=== PATIENT | female | born 1995 | race Caucasian/White ===

== ENCOUNTER 2017-07-19 17:46 | Emergency (ER) | payer OTHER ==
[2017-07-19 18:09] VITALS: BMI 20.9
[2017-07-19 18:18] LABS: BILIRUBIN,URINE NEGATIVE (NEGATIVE); BLOOD/HEMOGLOBIN,URINE NEGATIVE (NEGATIVE); GLUCOSE, URINE NEGATIVE (NEGATIVE); KETONES,URINE NEGATIVE (NEGATIVE); LEUKOCYTE ESTERASE ,URINE NEGATIVE (NEGATIVE); NITRITES,URINE NEGATIVE (NEGATIVE); PROTEIN,URINE NEGATIVE (NEGATIVE); UROBILINOGEN,URINE NORMAL (NORMAL)
[2017-07-19 18:19] LABS: BASOPHILS # (AUTO) 0.1 X10^3/uL (0.0-0.1); BASOPHILS % (AUTO) 0.8 % (0.2-1.0); EOSINOPHILS # (AUTO) 0.1 x10^3/uL (0.0-0.2); EOSINOPHILS % (AUTO) 1.1 % (0.9-2.9); HEMATOCRIT 39.7 % (36.0-47.0); HEMOGLOBIN 13.6 g/dL (12.0-16.0); LYMPHOCYTES # (AUTO) 3.9 X10^3/uL (1.3-2.9); LYMPHOCYTES % (AUTO) 45.8 % (21.0-51.0); MEAN CORPUSCULAR HGB CONC 34.3 g/dL (33.0-35.0); MEAN CORPUSCULAR VOLUME 81.6 fL (80.0-100.0); MEAN PLATELET VOLUME 8.7 fL (7.4-11.0); MONOCYTES # (AUTO) 0.4 x10^3/uL (0.3-0.8); MONOCYTES % (AUTO) 4.2 % (0.0-13.0); NEUTROPHILS # (AUTO) 4.1 x10^3/uL (2.2-4.8); NEUTROPHILS % (AUTO) 48.1 % (42.0-75.0); PLATELET COUNT 291 X10^3/uL (150.0-450.0); RED BLOOD COUNT 4.86 X10^6/uL (3.5-5.4); RED CELL DISTRIBUTION WIDTH 13.8 % (11.6-16.5); WHITE BLOOD COUNT 8.5 X10^3/uL (3.6-10.0)
[2017-07-19 18:26] LABS: COLOR,URINE YELLOW (YELLOW)
[2017-07-19 18:27] LABS: APPEARANCE,URINE CLEAR (CLEAR); BACTERIA,URINE NEGATIVE /HPF (NEGATIVE); RBC,URINE 0 /HPF (NEGATIVE); SQUAMOUS EPITHELIAL CELL,UR NEGATIVE /HPF (NEGATIVE)
[2017-07-19 18:37] LABS: SALICYLATE < 2.8 mg/dL (2.8-20)
[2017-07-19 18:38] LABS: BLOOD UREA NITROGEN 9 mg/dL (7-18); CALCIUM 8.6 mg/dL (8.5-10.1); CARBON DIOXIDE 25.5 mmol/L (21-32); CHLORIDE 103 mmol/L (98-107); SODIUM 143 mmol/L (136-145); eGFR BLACK RACES > 60 (>60); eGFR NON BLACK RACES > 60 (>60)
[2017-07-19 18:41] LABS: ALANINE AMINOTRANSFERASE 15 Units/L (12-78); ALBUMIN 3.3 g/dL (3.4-5.0); ALKALINE PHOSPHATASE 126 Units/L (46-116); ASPARTATE AMINO TRANSFERASE 12 Units/L (15-37); BLOOD ALCOHOL 20 mg/dL (0-19.9); COR CA(FOR HYPOALB) 9.2 mg/dL (8.5-10.1); TOTAL PROTEIN 7.3 g/dL (6.4-8.2)
[2017-07-19] MEDS ORDERED: NS 1000 ML 1,000 ML IV ONE ×2 (20:03→23:52)
[2017-07-19] MEDS ORDERED: NS 1000 ML 1,000 ML ONE (20:04)
--- NOTE | 2017-07-19 20:27 | DR.AMS ---
HPI - Time Seen Time seen: 17:55 - PCP Primary Care Physician: FER - HPI Comment HPI Comment: 2 WEEKS POST . TOOK 20 TO 30 1MG ATIVAN AT 16:45PM TODAY. MOTHER BROUGHT HER TO ED. PATIENT SLEEPY BUT IS TRYING TO ANSWER QUESTIONS. THIS WAS A SUICIDAL GESTURE. - Complaint Cheif Complaint Doctors Comments: DRUG OVERDOSE. Chief Complaint:: MOTHER BRINGS PT. IN POV WITH C/O ATTEMPTED SUICIDE WITH OVERDOSE. PT. 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 PT. VERY DROWSY UPON ARRIVAL TO ER BUT RESPONDS APPROPIATELY TO COMMANDS. PT. IS 2 WEEKS POST-. MOTHER OF PT. STATES PT'S BOYFRIEND JUST OVERDOSED AND 2 WEEKS AGO. MOTHER STATES "SHE NEEDS SOME IN- PATIENT TREATMENT. I CAN'T WATCH HER, TAKE CARE OF HER KIDS, AND TRY TO WORK. SHE IS POST AND DEPRESSED. SHE HAS A HISTORY OF BIPOLAR." PT. HAS HAD IN- PATIENT TREATMENT BEFORE AT [facility]. - Reviewed Nurses Notes Reviewed: Yes - Source History Provided: Patient, Parent - Mode of Arrival Mode of Arrival: Wheelchair - Timing Onset of Chief Complaint: 07/19/17 Came On: Suddenly Symptoms: Worsening - Duration Duration: Constant Duration: Hours - Quality Quality: Decreased Alertness - Severity Severity: Moderate - Context Recent: None (HAVE EMOTIONAL TRAUMA. HER DAUGHTERS DAD TRAGICALL THE DAY HER CHILD WAS BORN.) History Of: None - Associated Signs and Symptoms Associated Signs and Symptoms: None PMH - PMH Past Medical History: Yes Past Medical History: Anxiety, Depression, Renal Disease, Seizures Past Medical History Comment: BIPOLAR Past Surgical History: Yes Surgical History: , Tonsillectomy - Family History History of Family Medical Conditions: Yes Family Medical History: Diabetes Mellitus, Hypertension - Social History Does patient currently use any type of tobacco product: Yes Have you used tobacco products in the last 12 months: Yes Type of Tobacco Use: Cigarettes Does any household member use tobacco: No Alcohol Use: Occasionally Do you use any recreational Drugs:: No Lives With: Mom Lives Where: Home - infectious screening In the last 2 months have you had wt loss of >10#?: NO Have you had fever, night sweats or hemotysis?: No Have you traveled outside the country in the last 6 months?: No Isolation: Standard ROS - Review of Systems Constitutional: Weakness, Fatigue. negative: Chills, Fever Eyes: negative: Eye Pain, Discharge ENTM: negative: Ear Pain, Nose Discharge, Nose Congestion, Throat Pain Respiratoy: negative: Productive Cough, Non-Productive Cough, Short of Breath, Wheezing, Hemoptysis Cardiovascular: negative: Chest Pain Gastrointestinal/Abdominal: negative: Abdominal Pain, Diarrhea, Nausea, Vomiting Genitourinary: negative: Dysuria, Frequency, Hematuria Neurological: Weakness. negative: Headache, Dizziness Musculoskeletal: No Symptoms Reported Integumentary: No Symptoms Reported Hematologic/Lymphatic: No Symptoms Reported Endocrine: No Symptoms Reported All Other Systems: Reviewed and Negative PE - Vitals Vital Signs: Temp Pulse Pulse Resp BP BP Pulse Ox 07/20/17 09:58 69 20 140/87 100 07/20/17 06:30 60 18 115/77 100 07/20/17 06:15 62 19 118/71 100 07/20/17 05:30 59 L 18 119/76 99 07/20/17 05:00 60 14 113/71 98 07/20/17 04:30 61 19 104/65 98 07/20/17 04:00 66 20 105/64 99 07/20/17 03:15 68 20 108/65 96 07/20/17 02:30 64 20 120/86 97 07/20/17 02:15 65 17 122/86 100 07/20/17 02:00 70 20 106/69 99 07/20/17 01:45 69 20 111/72 100 07/20/17 01:30 66 14 128/91 100 07/20/17 01:15 72 20 121/87 100 07/20/17 01:00 72 14 118/84 100 07/20/17 00:45 74 13 107/78 99 07/20/17 00:30 65 18 107/69 100 07/20/17 00:15 66 19 115/71 100 07/20/17 00:00 66 21 111/66 98 07/19/17 23:45 71 14 111/66 100 07/19/17 23:30 61 18 103/63 99 07/19/17 23:15 63 17 104/58 100 07/19/17 23:00 69 19 100/66 98 07/19/17 22:45 67 18 107/68 99 07/19/17 22:30 68 18 103/60 100 07/19/17 22:15 69 20 103/62 100 07/19/17 22:00 72 21 100/59 99 07/19/17 21:45 72 19 103/60 100 07/19/17 21:30 73 21 96/56 99 07/19/17 21:15 71 20 98/59 100 07/19/17 21:00 63 19 107/75 100 07/19/17 20:45 68 18 103/68 100 07/19/17 20:30 69 19 117/80 100 07/19/17 20:15 75 14 123/86 100 07/19/17 20:00 81 13 123/82 100 07/19/17 19:45 84 20 110/73 93 L 07/19/17 19:30 89 21 109/72 92 L 07/19/17 19:15 90 21 104/68 93 L 07/19/17 19:00 95 H 22 100/65 94 L 07/19/17 18:45 105 H 14 113/70 100 07/19/17 18:30 107 H 19 118/74 99 07/19/17 18:15 93 H 20 117/77 99 07/19/17 18:00 107 H 23 119/78 97 07/19/17 17:46 97.6 F 127 H 16 120/77 97 02/20/16 22:45 118/67 118/67 - General Limitations: Altered Mental Status (SLEEPY BUT AROUSABLE.) - Head Head Exam: Normal Inspection Head Exam Physical: Other (NONE.) - Eyes Eye exam: Normal Appearance, PERRL, EOMI. negative: Scleral Icterus, Conjunctival Injection Pupils: Regular, Round: Bilateral, Reactive: Bilateral - ENT ENT Exam: Normal External Ear Exam External Ear Exam: Normal External Inspection TM/Canal Exam: Bilateral Normal Nose Exam: Normal Nose Exam Mouth Exam: Normal Inspection Throat Exam: Normal Inspection - Neck Neck Exam: Normal Inspection - Chest Chest Inspection: Symmetric Chest Wall Rise - Respiratory Respiratory Exam: Normal Lung Sounds Bilat Respiratory Exam: Bilateral Clear to Auscultation - Cardiovascular Cardiovascular Exam: Regular Rate, Normal Rhythm, Normal Heart Sounds - Abdominal Exam Abdominal Exam: Normal Bowel Sounds, Soft. negative: Tenderness - Extremities Extremities Exam: Normal Inspection - Back Back Exam: Normal Inspection - Neurological Neurological Exam: Alert, Other (SLEEPY BUT AROUSABLE.) Speech: Other (SLOW SPEECH.) Cranial Nerve Exam: EOM Function (II, III, IV, ): Normal, Facial Sensation (V) : Normal, Facial Palsy (VII): Normal, Gag reflex (XI): Normal, Spinal Accessory Function (XI): Normal, Tongue Deviation: Normal Motor Strength - LUE: 5/5 Motor Strength - RUE: 5/5 Motor Strength - LLE: 5/5 Motor Strength - RLE: 5/5 Upper Motor Neuron Exam: Babinski Sign: Normal - Psychological Psychiatric Exam: Depressed, Flat Affect - Skin Skin Exam: Normal Color MDM - Additional Information Obtained Additional Information Obtained From: Family - Differential Diagnosis Metabolic: Dehydration, Hypernatremia, Hypoglycemia, Hyponatremia Toxicologic: Drug Overdose, ETOH Intoxification, Medication Toxicity Infectious: UTI Course - Treatment Treatment: SEE ORDERS. - Consultation Consultation Comments: [facility] CALLED AND DISCUSS PATIENT WITH THEM. [facility] RECOMMENDATIONS NOTED AND APPLIED. - Education/Counseling Education/Counseling: Patient, Family, Education Educated On: Treatment, Diagnosis ROR - Labs Reviewed Laboratory Results Reviewed?: Yes Result Diagrams: 07/19/17 18:03 07/20/17 00:30 Laboratory: WBC 8.5 X10^3/uL (3.6-10.0) 07/19/17 18:03 RBC 4.86 X10^6/uL (3.5-5.4) 07/19/17 18:03 Hgb 13.6 g/dL (12.0-16.0) 07/19/17 18:03 Hct 39.7 % (36.0-47.0) 07/19/17 18:03 MCV 81.6 fL (80.0-100.0) 07/19/17 18:03 MCH 28.0 pg (27.0-34.0) 07/19/17 18:03 MCHC 34.3 g/dL (33.0-35.0) 07/19/17 18:03 RDW 13.8 % (11.6-16.5) 07/19/17 18:03 Plt Count 291 X10^3/uL (150.0-450.0) 07/19/17 18:03 MPV 8.7 fL (7.4-11.0) 07/19/17 18:03 Neut % 48.1 % (42.0-75.0) 07/19/17 18:03 Lymph % 45.8 % (21.0-51.0) 07/19/17 18:03 [place] % 4.2 % (0.0-13.0) 07/19/17 18:03 Eos % 1.1 % (0.9-2.9) 07/19/17 18:03 Baso % 0.8 % (0.2-1.0) 07/19/17 18:03 Neut # 4.1 x10^3/uL (2.2-4.8) 07/19/17 18:03 Lymph # 3.9 X10^3/uL (1.3-2.9) H 07/19/17 18:03 [place] # 0.4 x10^3/uL (0.3-0.8) 07/19/17 18:03 Eos # 0.1 x10^3/uL (0.0-0.2) 07/19/17 18:03 Baso # 0.1 X10^3/uL (0.0-0.1) 07/19/17 18:03 Absolute Nucleated RBC 0.0 /100WBC 07/19/17 18:03 Sodium 143 mmol/L (136-145) 07/19/17 18:03 Corrected Sodium TNP 07/19/17 18:03 Potassium 4.1 mmol/L (3.5-5.1) 07/20/17 00:30 Chloride 103 mmol/L (98-107) 07/19/17 18:03 Carbon Dioxide 25.5 mmol/L (21-32) 07/19/17 18:03 BUN 9 mg/dL (7-18) 07/19/17 18:03 Creatinine 0.80 mg/dL (0.55-1.02) 07/19/17 18:03 Est GFR (MDRD) Af Amer > 60 (>60) 07/19/17 18:03 Est GFR (MDRD) Non-Af > 60 (>60) 07/19/17 18:03 Glucose 69 mg/dL (65-99) 07/19/17 18:03 Calcium 8.6 mg/dL (8.5-10.1) 07/19/17 18:03 Corrected Calcium 9.2 mg/dL (8.5-10.1) 07/19/17 18:03 Total Bilirubin 0.10 mg/dL (0.2-1.0) L 07/19/17 18:03 AST 12 Units/L (15-37) L 07/19/17 18:03 ALT 15 Units/L (12-78) 07/19/17 18:03 Alkaline Phosphatase 126 Units/L (46-116) H 07/19/17 18:03 Total Protein 7.3 g/dL (6.4-8.2) 07/19/17 18:03 Albumin 3.3 g/dL (3.4-5.0) L 07/19/17 18:03 Globulin 4.0 g/dL (2.5-4.5) 07/19/17 18:03 Albumin/Globulin Ratio 0.8 Ratio (1.1-2.1) L 07/19/17 18:03 Specimen Type Catherized urine 07/19/17 18:05 Urine Color Yellow (YELLOW) 07/19/17 18:05 Urine Appearance Clear (CLEAR) 07/19/17 18:05 Urine pH 6.0 (5.0 - 8.0) 07/19/17 18:05 Ur Specific [place] 1.005 (1.000-1.030) 07/19/17 18:05 Urine Protein Negative (NEGATIVE) 07/19/17 18:05 Urine Glucose (UA) Negative (NEGATIVE) 07/19/17 18:05 Urine Ketones Negative (NEGATIVE) 07/19/17 18:05 Urine Occult Blood Negative (NEGATIVE) 07/19/17 18:05 Urine Nitrite Negative (NEGATIVE) 07/19/17 18:05 Urine Bilirubin Negative (NEGATIVE) 07/19/17 18:05 Urine Urobilinogen Normal (NORMAL) 07/19/17 18:05 Ur Leukocyte Esterase Negative (NEGATIVE) 07/19/17 18:05 Urine RBC 0 /HPF (NEGATIVE) 07/19/17 18:05 Urine WBC 0 /HPF (NEGATIVE) 07/19/17 18:05 Ur Squamous Epith Cells Negative /HPF (NEGATIVE) 07/19/17 18:05 Urine Bacteria Negative /HPF (NEGATIVE) 07/19/17 18:05 Ur Culture Indicated? No/not indicated 07/19/17 18:05 Salicylates < 2.8 mg/dL (2.8-20) L 07/19/17 18:03 Urine Opiates Screen Negative (NEG=<300) 07/19/17 22:50 Urine Methadone Screen Negative (NEG=<300) 07/19/17 22:50 Acetaminophen 0.0 ug/mL (10-30) L 07/19/17 18:15 Ur Barbiturates Screen Negative (NEG=<200) 07/19/17 22:50 Ur Phencyclidine Scrn Negative (NEG=<25) 07/19/17 22:50 Ur Amphetamines Screen Negative (NEG=<1000) 07/19/17 22:50 U Benzodiazepines Scrn Positive (NEG=<200) A 07/19/17 22:50 Urine Cocaine Screen Negative (NEG=<300) 07/19/17 22:50 U Marijuana (THC) Screen Positive (NEG=<50) A 07/19/17 22:50 Ethyl Alcohol mg/dL 20 mg/dL (0-19.9) H 07/19/17 18:03 U Ethyl Alcohol Screen Cancelled 07/19/17 18:03 - Diagnosis Discharge Problem: Drug overdose, Substance abuse, Bipolar 1 disorder, depressed - Discharge Plan Disposition: 02 XFER [facility] Condition: Stable - Follow ups/Referrals Follow ups/Referrals: TITA CRUZ [Primary Care Provider] - 3 days - Instructions
[2017-07-19] MEDS ORDERED: NS + KCL 20 MEQ/L 1,000 ML IV ONE (20:58)
[2017-07-19] MEDS ORDERED: NS + KCL 20 MEQ/L 1,000 ML IV SCH (21:00)
[2017-07-20] MEDS ORDERED: NS 1000 ML 1,000 ML ONE ×2 (00:01→05:05)
[2017-07-20 09:59] VITALS: BP 140/87
== END 2017-07-20 10:01 | disposition short-term general hospital (02) ==
LOC: ER 17:53
DX: T50.992A Poisoning by other drugs, medicaments and biological substances, intentional self-harm, initial encounter (principal); F19.10 Other psychoactive substance abuse, uncomplicated; F31.9 Bipolar disorder, unspecified; F32.89 Other specified depressive episodes
CPT/HCPCS: 36415; 51702; 80053; 80307; 80320; 81001; 84132; 85025; 93005; 93010; 96365; 96367; 99284; 99285; A4222; G0434; G6038; G6039; G6040